=== PATIENT | female | born 1945 | race Caucasian/White ===

== ENCOUNTER 2017-09-27 08:29 | Day surgery (SDC) | payer MEDICARE ==
[2017-09-24 13:14] LABS: HEMATOCRIT 48.8 % (34.6-47.8); HEMOGLOBIN 16.9 g/dL (11.7-16.4)
[2017-09-24 13:26] LABS: BLOOD UREA NITROGEN 8 mg/dL (7-18)
[2017-09-24 13:29] LABS: ASPARTATE AMINO TRANSFERASE 18 U/L (15-37)
[2017-09-24 13:47] VITALS: BP 120/73
[~2017-09-27] VITALS: Ht 167.6 cm; Wt 67.2 kg
[~2017-09-27 08:29] MED LIST: AMLO5TAB2 PO; ASPI-515 PO; ASPI325T17 PO; CHOL2000 PO; CYAN2000 PO; DILT120C80 PO; IRBE150T25 PO; ISOS30TA8 PO; OLME1TAB25 PO; PANT40TA3 PO; VIT D; VITA1CAP PO
[2017-09-27] MEDS ORDERED: EVOL140P SQ (09:03)
[2017-09-27] MEDS ORDERED: IRBE150T25 PO (09:03)
[2017-09-27] MEDS ORDERED: SODIUM CHLORIDE 0.9% 1,000 ML IV SCH (10:00)
[2017-09-27] MEDS ORDERED: FENTANYL PF 100 MCG/2ML ONE (10:51)
[2017-09-27] MEDS ORDERED: LIDOCAINE 2%, 20ML ONE (10:52)
[2017-09-27] MEDS ORDERED: MIDAZOLAM 1 MG/ML, 5ML ONE (10:52)
== END 2017-09-27 15:01 ==
LOC: CACL 08:29
PROVIDERS: ATTEND Internal Medicine Cardiovascular Disease
DX: I25.10 Atherosclerotic heart disease of native coronary artery without angina pectoris (principal); I10 Essential (primary) hypertension; Z79.82 Long term (current) use of aspirin; Z72.89 Other problems related to lifestyle
CPT/HCPCS: 36415; 80053; 85025; 93458; 99156; C1760; C1894; J2250; J3010; J3490; Q9967

== ENCOUNTER 2018-04-17 20:34 | Emergency (ER) | payer MEDICARE ==
[~2018-04-17] VITALS: Ht 167.6 cm; Wt 66.0 kg
[~2018-04-17 20:34] MED LIST changes: +EVOL140P SQ
[2018-04-17] MEDS ORDERED: CYAN50003 PO (21:02)
[2018-04-17 21:14] LABS: BASOPHILS # (AUTO) 0.07 x10^3/uL (0-0.1); BASOPHILS % (AUTO) 1 % (0-1); EOSINOPHILS # (AUTO) 0.53 x10^3/uL (0-0.4); EOSINOPHILS % (AUTO) 4 % (1-7); LYMPHOCYTES # (AUTO) 3.67 x10^3/uL (1-3.4); LYMPHOCYTES % (AUTO) 30 % (22-44); MD NO; MEAN CORPUSCULAR HEMOGLOBIN 34.5 pg (27.0-34.8); MEAN CORPUSCULAR HGB CONC 34.3 g/dL (32.4-35.8); MEAN CORPUSCULAR VOLUME 100.7 fL (80-100); MEAN PLATELET VOLUME 7.7 fL (7.4-10.4); MONOCYTES # (AUTO) 0.93 x10^3/uL (0.2-0.8); MONOCYTES % (AUTO) 8 % (2-9); NEUTROPHILS # (AUTO) 7.03 x10^3/uL (1.8-6.8); NEUTROPHILS % (AUTO) 58 % (42-75); PLATELET COUNT 319 x10^3/uL (130-400); RED BLOOD COUNT 5.22 x10^6/uL (3.82-5.3); RED CELL DISTRIBUTION WIDTH 15.1 % (9.6-15.2)
[2018-04-17 21:20] LABS: INTERNATIONAL NORMALIZED RATIO 0.98 (0.93-1.1); PROTHROMBIN TIME 10.2 Seconds (9.6-11.5)
[2018-04-17 21:24] LABS: ALANINE AMINOTRANSFERASE 28 U/L (12-78); ALBUMIN 4.1 g/dL (3.4-5.0); ANION GAP 11 mmol/L (5-15); CALCIUM 9.3 mg/dL (8.5-10.1); CHLORIDE 97 mmol/L (98-107); CREATININE 0.89 mg/dL (0.55-1.02)
[2018-04-17 21:29] LABS: ALKALINE PHOSPHATASE 107 U/L (45-117); BILIRUBIN,TOTAL 0.7 mg/dL (0.2-1.0); TOTAL PROTEIN 8.4 g/dL (6.4-8.2); TROPONIN I < 0.015 ng/mL (0.000-0.045)
[2018-04-17] MEDS ORDERED: ASPIRIN 81 MG TABLET CHEW PO ONE (21:30)
[2018-04-17] MEDS ORDERED: MORPHINE SULFATE 4 MG/ML, 1ML IVPush PRN (21:30)
[2018-04-17] MEDS ORDERED: SODIUM CHLORIDE FLUSH 10ML SYR IVF ONE (21:30)
[2018-04-17] MEDS ORDERED: ONDANSETRON 2MG/ML, 2ML IVPush ONE (21:30)
[2018-04-17] MEDS ORDERED: SODIUM CHLORIDE 0.9% 1,000ML IVBOLUS ONE (21:30)
[2018-04-17] MEDS ORDERED: ASPIRIN 81 MG TABLET CHEW ONE (21:33)
[2018-04-17 22:12] VITALS: BP 139/80
[2018-04-17] MEDS ORDERED: OMNIPAQUE 350 MG/ML, 100ML BOTTLE ONE (22:12)
== END 2018-04-17 22:45 | disposition home or self-care (01) ==
LOC: ED 21:19
DX: R00.0 Tachycardia, unspecified (principal); R91.1 Solitary pulmonary nodule; I10 Essential (primary) hypertension; E78.5 Hyperlipidemia, unspecified; Z90.49 Acquired absence of other specified parts of digestive tract; Z90.710 Acquired absence of both cervix and uterus; F17.200 Nicotine dependence, unspecified, uncomplicated
CPT/HCPCS: 36415; 71045; 71275; 80053; 83880; 84484; 85025; 85610; 85730; 93005; 99285; 99406; J7030; Q9967

== ENCOUNTER → 2019-09-07 | Outpatient (CLI) | payer MEDICARE ==
[~2019-09-07] MED LIST changes: +AMLO-150 PO; -AMLO5TAB2 PO; +CYAN50003 PO
== END | disposition home or self-care (01) ==
LOC: CFH 10:46
PROVIDERS: ATTEND Nurse Practitioner Primary Care
DX: M43.26 Fusion of spine, lumbar region (principal); M25.552 Pain in left hip; F17.200 Nicotine dependence, unspecified, uncomplicated; Z86.73 Personal history of transient ischemic attack (TIA), and cerebral infarction without residual deficits